=== PATIENT | female | born 1950 | race Caucasian/White ===

== ENCOUNTER → 2016-07-13 | Outpatient (CLI) | payer BC ==
[2016-07-13 15:25] LABS: ALBUMIN 4.2 gm/dL (3.5-5.0); ANION GAP 11.4 (10.0-19.0); CREATININE 1.1 mg/dL (0.5-1.1); MAGNESIUM 1.8 mg/dL (1.8-2.6); PHOSPHORUS 2.9 mg/dL (2.5-4.9); POTASSIUM 3.4 mMol/L (3.7-5.1)
== END | disposition disaster alternative care site (69) ==
LOC: LCNC 15:08
PROVIDERS: Internal Medicine Interventional Cardiology
DX: R00.2 Palpitations (principal)